=== PATIENT | male | born 1955 | race Two or more races ===

== ENCOUNTER → 2018-05-10 | Emergency (ER) | payer OTHER ==
[~2018-05-10] VITALS: Ht 182.9 cm; Wt 74.4 kg
[~2018-05-10] MED LIST: AVAPRO150 MG; PROPRANOLOL HCL10 MG
== END | disposition left against medical advice (07) ==
LOC: ER 18:16
DX: Z53.20 Procedure and treatment not carried out because of patient's decision for unspecified reasons (principal)